=== PATIENT | female | born 1990 | race Caucasian/White ===

== ENCOUNTER 2024-11-13 17:47 | Emergency (ER) | payer BC, SELFPAY ==
--- OUTSIDE RECORDS SUMMARY | 2024-11-13 17:55 | XMS_ITS | Clinical Summary ---
Author Organization [facility] Address [address] [place] [address] Care Team Providers Care Salesperson Burial Needs Name Role Phone Pcp, No Primary Care Provider Unavailabl e Allergies No known active allergies Immunizations Immunization Administration Dates Next Due Hep B, adult 11/16/1992,06/07/1992,04/20/1992 Influenza, injectable, quadr ivalent, preservative free 01/04/2022 MMR 10/24/2016 Measles 04/14/1993,1989 Mumps 04/14/1993,1989 Rubella 04/14/1993,1989 Tdap 06/01/2022,05/01/2011 Typhoid, ViCPs 06/03/2014 Social History Tobacco Use Types Packs/Day Years Used Date Smoking Tobacco: Never Assessed Comments Unknown Sex and Gender Information Value Date Recorded Sex Assigned at Not on file Legal Sex Female 3:23 PM EST Gender Identity Not on file Sexual Orientation Not on file Plan of Treatment Health Maintenance Due Date Last Done Comments [facility]-Depression Screening 1989 [facility]-HIV Screening 1989 [facility]-Hepatitis C Screening 1989 [facility]-Infant/Child/Adol SDOH Screenings 1989 [facility]- SDOH Screenings 2007 [facility]-Adult SDOH Screenings 2007 [facility]-Pap Smear 2010 HPV Vaccines (1 - 3-dose SCDM series) 02/01/2016 [facility]-Varicella Vaccines (1 of 2 - 13+ 2-dose series) 11/21/2016 [facility]-Cervical Cancer Screening 2019 [facility]-HPV/Cotest 2019 [id number] Vaccine (2023-25 season) 2023 [facility]-Influenza Vaccine (#1) 2024 01/04/2022 [facility]-DTaP,Tdap,and Td Vaccines (3 - Td or Tdap) 06/01/2032 06/01/2022, 05/01/2011 [facility]-Zoster Vaccines (1 of 2) 2039 [facility]-Hepatitis B Vaccines Completed 993, 06/07/1992, 04/20/1992 [facility]-HIB Vaccines Aged Out No longer e ligible based on patient's age to complete this topic [facility]-Hepatitis A Vaccines Aged Out No longer eligible based on patient's age to complete this topic [facility]-IPV Vaccines Aged Out No longer e ligible based on patient's age to complete this topic [facility]-Pneumococcal Vaccine: Pediatrics (0 to 5 Years) and At-Risk Patients (6 to 49 Years) Aged Out No longer eligible b ased on patient's age to complete this topic [facility]-Rotavirus Vaccines Aged Out No lo nger eligible based on patient's age to complete this topic Care Teams Salesperson Burial Needs Relationship Specialty Start Date End Date Pcp, No [address] [place] [address] PCP - General Family Medicine 06/01/22
[2024-11-13 17:59] VITALS: BP 139/89; PULSE 89; RESP 20; TEMP 36.9; O2SAT 100; BMI 25.8
--- NOTE | 2024-11-13 18:12 | HMH.EDGENADL ---
Discharge Plan Disposition Patient Disposition: Home, Self-Care Condition: Good Prescriptions Prescriptions: No Action No Known Home Medications Referrals Follow up/Referrals: Provider,Referral, MD [Primary Care Provider, Medical] - See instructions Activity Restrictions/Add. Instructions Additional Instructions/Restrictions: Please return to the ER on days 3,7,14 for the remainder of your Clinical Impressions Clinical Impression: Exposure to bat without known bite, Rabies vaccine administered Instructions Patient Instructions: Animal Bites Print Language Print Language: Taiwanese Discharge ED Provider: Kalani Farr General Adult HPI General Chief complaint: Animal Bite Stated complaint: Woke up with bat in bedroom,wants rabbies vaccine Time Seen by Provider: 11/13/24 17:50 Mode of Arrival: Ambulatory Source of Information: Patient Description of Symptoms (Recalled from ER Triage Doc. by RN): pt found bat in room this mornig after in flew in through a window overnight that she didnt realize was down History of Present Illness HPI narrative: Patient is an otherwise healthy 34-year-old female who presented to the emergency department after an exposure to a bat. Patient states that she woke up this morning with a bat in her house. Patient states that she left her windows cracked at the top. Patient states that she is unsure if she got a bite from the bat. Patient is otherwise vaccinated but has never had a rabies vaccine. Patient has no other medical problems at this time. Related Data Home Medications ?Medication ?Instructions ?Recorded ?Confirmed No Known Home Medications 09/19/24 09/19/24 Allergies Allergy/AdvReac Type Severity Reaction Status Date / Time No Known Allergies Allergy Verified 09/19/24 08:37 [facility] Disclaimer: The information contained in this section may have been updated after the patient was seen, as this information can be updated by other users. Social History (Updated 09/19/24 @ 09:02 by Zuleyma Stover APRN) Smoking Status: Never smoker alcohol intake: current alcohol intake frequency: holidays/special occasions only current occupational status: employed Travel in the last 8 weeks?: Inside the [place] Have you lived/traveled outside US in past 30 days?: No Contact w/someone who lives/traveled outside US past 30 days?: No Exposure to someone with infectious disease in past 14 days?: No Do you have a fever (greater than 100.4 F or 38 C)?: No Have you tested positive for COVID-19?: No Exposed to someone with COVID-19 in past 14 days?: No Do you have a sore throat?: No Do you have a cough?: No Do you have any weakness?: No Do you have any diarrhea?: No Are you experiencing any unusual bleeding?: No Do you have any muscle aches/pain?: No Do you have any abdominal pain?: No Are you experiencing loss of taste or smell?: No ROS Obtained: Yes All systems reviewed & no additional complaints except as documented and Yes Systems reviewed as appropriate & no additional complaints except as documented Physical Exam General General appearance: alert Head Head exam: atraumatic Eye Eye exam: Present normal appearance ENT ENT exam: Present normal exam Neck Neck exam: Present normal inspection Chest Chest inspection: Present normal inspection and symmetric chest wall rise Respiratory Respiratory exam: Absent respiratory distress Cardiovascular Cardiovascular exam: Present regular rate Abdominal Exam Abdominal exam: Absent distention Extremities Exam Extremities exam: Present normal inspection Back Exam Back exam: Present normal inspection Neurological Exam Neurological exam: Present alert Psychiatric Psychiatric exam: Present normal affect Skin Skin exam: Present warm Medical Decision Making Medical Records Medical records reviewed: Yes I reviewed the patient's medical records. Screening: Per USPSTF and CDC recommendations, given the prevalence of disease in our region, it is our hospital?s policy to screen for HIV and viral Hepatitis for all patients aged 18 and over and those with ongoing risk factors. Js Inquiry Pt receiving controlled substance: No Vital Signs: 11/13/24 17:59 Temperature 98.4 F Temperature Source Oral Pulse Rate [Left Radial] 89 Respiratory Rate 20 Blood Pressure [Right Arm] 139/89 Blood Pressure Mean [Right Arm] 105 02 Sat by Pulse Oximetry 100 Oxygen Delivery Method Room Air Lab Data Lab results reviewed: Yes I reviewed the patient's lab results. Orders (Tests/Meds): ED MEDICATIONS Discontinued Medications Generic Name Dose Route Start Last Admin Trade Name Freq PRN Reason Stop Dose Admin Rabies Immune Globulin 1,451.5 unit 11/13/24 18:05 Rabies Immune Globulin/Pf 300 Unit/Ml 5ml Vial IM 11/13/24 18:06 ONCE ONE Rabies Vaccine 2.5 unit 11/13/24 18:05 Rabies Vaccine (Pcec)/Pf 2.5 Unit Vial IM 11/13/24 18:06 .ONCE ONE Medical Decision Narrative: Patient is an otherwise healthy 34-year-old female who presented to the emergency department after an exposure to a bat. States that she woke up this morning with a bat in her house. Patient is unsure if she got bit. Patient is vaccinated but has never had a rabies vaccine. Differential includes but not limited to: Exposure to bat, bat bite, cellulitis, need for vaccination, amongst others. On exam, patient had no evidence of bites. Patient will otherwise well-appearing. At this time, patient was administered the rabies immunoglobulin as well as the rabies vaccine. Patient was sent with a form to come back to the emergency department for days 3 7 and 14 vaccinations. Patient was otherwise discharged home in stable condition return precautions were discussed. Critical Care Critical Care Time Critical Care Time: No
[2024-11-13] MEDS: RABIES VACCINE (PCEC)/PF 2.5 UNIT VIAL IM (18:19)
[2024-11-13] MEDS: RABIES IMMUNE GLOBULIN/PF 300 UNIT/ML 5ML VIAL 1451.5 UNIT IM (18:27)
[2024-11-13 18:33] VITALS: BP 180/79; PULSE 80; RESP 20; TEMP 36.9; O2SAT 98
== END 2024-11-13 18:34 | disposition home or self-care (01) ==
PROVIDERS: Emergency Provider Student in an Organized Health Care Education/Training Program
DX: Z20.3 Contact with and (suspected) exposure to rabies (principal); Z29.14 Encounter for prophylactic rabies immune globulin
CPT/HCPCS: 90375; 90471; 90675; 96372; 99284

== ENCOUNTER 2024-11-16 14:52 | Outpatient (CLI) | payer BC, SELFPAY ==
--- OUTSIDE RECORDS SUMMARY | 2024-11-16 14:55 | XMS_ITS | Clinical Summary ---
Author Organization [facility] Address [address] [place] [address] Care Team Providers Care Unit Secretary Name Role Phone Pcp, No Primary Care [...] 11/21/2016 [facility]-Cervical Cancer Screening 2019 [facility]-HPV/Cotest 2019 [id number] Vaccine (2023-25 season) 2023 [facility]-Influenza Vaccine (#1) [...] age to complete this topic Care Teams Unit Secretary Relationship Specialty Start Date End Date Pcp, No [address] [place] [address] PCP - General Family Medicine 06/01/22
[2024-11-16] MEDS: RABIES VACCINE (PCEC)/PF 2.5 UNIT VIAL IM (15:12)
== END 2024-11-16 15:20 | disposition home or self-care (01) ==
LOC: INF 14:53
PROVIDERS: Visit Provider Student in an Organized Health Care Education/Training Program
DX: Z01.89 Encounter for other specified special examinations (principal); Z20.9 Contact with and (suspected) exposure to unspecified communicable disease
CPT/HCPCS: 90675; 96372

== ENCOUNTER 2024-11-28 11:19 | Outpatient (CLI) | payer BC, SELFPAY ==
--- OUTSIDE RECORDS SUMMARY | 2024-11-28 11:31 | XMS_ITS | Clinical Summary ---
Author Organization [facility] Address [address] [place] [address] Care Team Providers Care Cement Patcher Name Role Phone Pcp, No Primary Care [...] 11/21/2016 [facility]-Cervical Cancer Screening 2019 [facility]-HPV/Cotest 2019 [id number] Vaccine (2023-25 season) 2023 [facility]-Influenza Vaccine (#1) [...] age to complete this topic Care Teams Cement Patcher Relationship Specialty Start Date End Date Pcp, No [address] [place] [address] PCP - General Family Medicine 06/01/22
[2024-11-28] MEDS: RABIES VACCINE (PCEC)/PF 2.5 UNIT VIAL IM (11:45)
[2024-11-28 11:48] VITALS: BP 122/60; PULSE 62; RESP 17; O2SAT 98
[2024-11-28 11:50] VITALS: BP 122/60; PULSE 62; RESP 17; O2SAT 98
== END 2024-11-28 11:52 | disposition home or self-care (01) ==
LOC: INF 11:21
PROVIDERS: Visit Provider Student in an Organized Health Care Education/Training Program
DX: Z29.14 Encounter for prophylactic rabies immune globulin (principal); Z20.9 Contact with and (suspected) exposure to unspecified communicable disease
CPT/HCPCS: 90675; 96372

== ENCOUNTER 2024-12-05 14:55 | Outpatient (CLI) | payer BC, SELFPAY ==
--- OUTSIDE RECORDS SUMMARY | 2024-12-05 14:58 | XMS_ITS | Clinical Summary ---
Author Organization [facility] Address [address] [place] [address] Care Team Providers Care Fishing Vessel Captain Name Role Phone Pcp, No Primary Care [...] [facility]-HIV Screening 1989 [facility]-Hepatitis C Screening 1989 [facility]-/Child/Adol SDOH Screenings 1989 [facility]- SDOH Screenings 2007 [facility]-Adult SDOH Screenings 2007 [facility]-Pap Smear 2010 HPV Vaccines (1 - 3-dose SCDM series) 02/01/2016 [facility]-Varicella Vaccines (1 of 2 - 13+ 2-dose series) 11/21/2016 [facility]-Cervical Cancer Screening 2019 [facility]-HPV/Cotest 2019 [id number] Vaccine (2023-25 season) 2023 [facility]-Influenza Vaccine (#1) [...] age to complete this topic Care Teams Fishing Vessel Captain Relationship Specialty Start Date End Date Pcp, No [address] [place] [address] PCP - General Family Medicine 06/01/22
[2024-12-05] MEDS: RABIES VACCINE (PCEC)/PF 2.5 UNIT VIAL IM (15:58)
[2024-12-05 16:01] VITALS: BP 114/62; PULSE 68; RESP 17; O2SAT 99
== END 2024-12-05 16:02 | disposition home or self-care (01) ==
LOC: INF 14:56
PROVIDERS: Visit Provider Emergency Medicine
DX: Z29.14 Encounter for prophylactic rabies immune globulin (principal); Z20.9 Contact with and (suspected) exposure to unspecified communicable disease
CPT/HCPCS: 90675; 96372